=== PATIENT | male | born 1960 | race Caucasian/White ===

== ENCOUNTER → 2020-11-01 19:39 | Outpatient (CLI) | payer BC, SELFPAY ==
[2020-11-01 20:43] LABS: COVID19 -Nasal RAPID Negative (Negative)
== END ==
PROVIDERS: Referring Provider Physician Assistant; Visit Provider Physician Assistant
DX: Z20.822 Contact with and (suspected) exposure to COVID-19 (principal)
CPT/HCPCS: 87635

== ENCOUNTER → 2022-01-23 13:21 | Outpatient (CLI) | payer OTHER, SELFPAY ==
--- NOTE | 2022-01-23 13:24 | DI.RAD.S_ITS ---
PROCEDURE: XR SHOULDER RT MIN 2V INDICATIONS: Right shoulder injury-L I TECHNIQUE: 3 views of the shoulder were acquired. COMPARISON: None. FINDINGS: Bones: Mild acromioclavicular and glenohumeral degenerative changes. No acute fracture or dislocation. Soft tissues: No suspicious soft tissue calcifications. IMPRESSION: No acute radiographic abnormality. If there is high concern for further derangement, consider MRI evaluation. Dictated by: Manjit Anders M.D. on 01/23/2022 at 14:22 Approved by: Manjit Anders M.D. on 01/23/2022 at 14:23
== END ==
PROVIDERS: Referring Provider Physician Assistant; Visit Provider Physician Assistant
DX: M25.511 Pain in right shoulder (principal)
CPT/HCPCS: 73030

== ENCOUNTER → 2022-02-26 19:43 | Outpatient (CLI) | payer OTHER, SELFPAY ==
--- NOTE | 2022-02-26 19:44 | DI.MRI.S_ITS ---
PROCEDURE: MR SHOULDER RT WO CON INDICATIONS: TRAUMATIC TEAR OF RT ROTATOR CUFF TECHNIQUE: Noncontrast oblique coronal T2 fast spin echo with fat saturation, oblique sagittal T1 spin echo and T2 fast spin echo with fat saturation, axial T1 spin echo and T2 fast spin echo with fat saturation through the shoulder. COMPARISON: None. FINDINGS: Image quality: Excellent. Rotator cuff: There is a near complete full-thickness tear of the supraspinatus tendon at its anterior attachment on the greater tuberosity involving 90% of the tendon thickness. Infraspinatus and subscapularis tendons appear intact throughout. Sagittal images demonstrate no muscle atrophy. Bones and bursae: No bone marrow contusions or fractures. There is moderate AC joint degenerative change present. The acromion demonstrates conventional anatomy, without an os acromiale. There is a small shoulder joint effusion present in a small effusion subacromial subdeltoid bursa. Capsule and soft tissues: There is a questionable tear involving the anterior glenoid labrum. If further evaluation is clinically indicated MR arthrogram may be of further clinical value. The long head of the biceps tendon demonstrates normal location and morphology. The rotator interval appears normal, without fibrosis. The coracohumeral ligament is normal in thickness. IMPRESSION: 1. There is a complete full-thickness tear of the supraspinatus tendon at its anterior attachment on the greater tuberosity involving 90% of the tendon thickness. 2. Questionable tear involving the anterior glenoid labrum if further evaluation is clinically indicated MR arthrogram may be of further clinical value. 3. Moderate AC joint degenerative change. 4. Small shoulder joint effusion. 5. Small effusion in the subacromial subdeltoid bursa. Dictated by: Curtis Hale M.D. on 02/27/2022 at 8:53 Approved by: Curtis Hale M.D. on 02/27/2022 at 9:00
== END ==
PROVIDERS: Referring Provider Preventive Medicine Public Health & General Preventive Medicine; Visit Provider Preventive Medicine Public Health & General Preventive Medicine
DX: S46.011D Strain of muscle(s) and tendon(s) of the rotator cuff of right shoulder, subsequent encounter (principal); M25.411 Effusion, right shoulder; X58.XXXD Exposure to other specified factors, subsequent encounter
CPT/HCPCS: 73221